=== PATIENT | male | born 1950 | race Two or more races ===

== ENCOUNTER → 2022-06-23 | Outpatient (CLI) | payer OTHER ==
[2022-06-23 14:16] LABS: Urine Bacteria NONE SEEN /hpf (None Seen); Urine Blood Negative /uL (Negative); Urine Hyaline Cast FEW /lpf (0 - 2); Urine Specific Gravity 1.013 (1.001-1.035); Urine WBC <1 /hpf (0 - 3)
[2022-06-23 14:28] LABS: Basophils # (auto) 0.1 10 ^3/uL (0-0.2); Eosinophils # (auto) 0.4 10 ^3/uL (0-0.8); Eosinophils % (auto) 3.6 % (0.0-7.0); Hematocrit 40.6 % (41.0-53.0); Hemoglobin 13.2 g/dL (13.5-17.5); Lymphocytes # (auto) 2.5 10 ^3/uL (0.4-5.4); Mean Corpuscular Hemoglobin 30.8 pg (28.0-32.0); Mean Corpuscular Hgb Conc. 32.4 g/dL (32.0-36.0); Mean Corpuscular Volume 94.9 fL (80.0-100.0); Monocytes # (auto) 1.2 10 ^3/uL (0-1.3); Monocytes % (auto) 11.3 % (0.0-12.0); Neutrophils # (auto) 6.5 10 ^3/uL (1.6-8.6); Neutrophils % (auto) 61.1 % (37.0-80.0); Nucleated Red Blood Cells % 0.1 %; Red Blood Cells 4.27 10^6/uL (4.5-5.90); Red Cell Distribution Width 14.3 % (11.8-14.3); White Blood Cell 10.7 10^3/uL (4.4-10.8)
[2022-06-23 15:09] LABS: Potassium 4.6 mmol/L (3.5-5.1)
[2022-06-23 15:20] LABS: Albumin 3.3 g/dL (3.4-5.0); BUN/Creatinine Ratio 14.6; Bilirubin, Total 0.4 mg/dL (0.2-1.0); Calcium 9.4 mg/dL (8.5-10.1); Total Protein 7.3 g/dL (6.4-8.2)
== END | disposition home or self-care (01) ==
LOC: LAB 13:39
PROVIDERS: ATTEND Internal Medicine
DX: Z12.11 Encounter for screening for malignant neoplasm of colon (principal); R25.2 Cramp and spasm; J44.9 Chronic obstructive pulmonary disease, unspecified
CPT/HCPCS: 36415; 80053; 80061; 81001; 84153; 84443; 85025

== ENCOUNTER 2022-07-03 14:38 | Emergency (ER) | payer OTHER ==
[~2022-07-03] VITALS: Ht 175.3 cm; Wt 77.0 kg
[2022-07-03 15:06] VITALS: BP 129/79
[2022-07-03] MEDS ORDERED: AZIT1POW PO (20:12)
== END 2022-07-03 21:40 | disposition home or self-care (01) ==
LOC: ER 14:38
DX: J40 Bronchitis, not specified as acute or chronic (principal); R19.7 Diarrhea, unspecified; R11.0 Nausea; J44.9 Chronic obstructive pulmonary disease, unspecified; R07.89 Other chest pain; I25.2 Old myocardial infarction; I50.9 Heart failure, unspecified; Z90.49 Acquired absence of other specified parts of digestive tract; Z90.89 Acquired absence of other organs; Z95.0 Presence of cardiac pacemaker; Z87.891 Personal history of nicotine dependence; Z79.2 Long term (current) use of antibiotics; Z88.8 Allergy status to other drugs, medicaments and biological substances; Z20.822 Contact with and (suspected) exposure to COVID-19
CPT/HCPCS: 36415; 71046

== ENCOUNTER → 2022-07-09 | Outpatient (CLI) | payer OTHER ==
[~2022-07-09] MED LIST: AZIT1POW PO
[2022-07-09 10:10] LABS: Urine WBC None Seen /hpf (0 - 3)
[2022-07-09 10:28] LABS: Basophils # (auto) 0.1 10 ^3/uL (0-0.2); Basophils % (auto) 0.7 % (0.0-2.0); Eosinophils # (auto) 0.5 10 ^3/uL (0-0.8); Eosinophils % (auto) 4.2 % (0.0-7.0); Hematocrit 42.1 % (41.0-53.0); Hemoglobin 13.2 g/dL (13.5-17.5); Lymphocytes # (auto) 2.2 10 ^3/uL (0.4-5.4); Lymphocytes % (auto) 18.6 % (10.0-50.0); Mean Corpuscular Hemoglobin 29.7 pg (28.0-32.0); Mean Corpuscular Hgb Conc. 31.3 g/dL (32.0-36.0); Monocytes # (auto) 1.4 10 ^3/uL (0-1.3); Monocytes % (auto) 11.6 % (0.0-12.0); Neutrophils # (auto) 7.6 10 ^3/uL (1.6-8.6); Neutrophils % (auto) 64.9 % (37.0-80.0); Red Blood Cells 4.42 10^6/uL (4.5-5.90); Red Cell Distribution Width 13.8 % (11.8-14.3); White Blood Cell 11.7 10^3/uL (4.4-10.8)
[2022-07-09 10:36] LABS: Urine Bacteria NONE SEEN /hpf (None Seen); Urine Blood Negative /uL (Negative); Urine Specific Gravity 1.014 (1.001-1.035)
[2022-07-09 10:57] LABS: Potassium 4.2 mmol/L (3.5-5.1)
[2022-07-09 11:04] LABS: Albumin 3.3 g/dL (3.4-5.0); BUN/Creatinine Ratio 16.7; Bilirubin, Total 0.2 mg/dL (0.2-1.0); Calcium 9.5 mg/dL (8.5-10.1); Total Protein 6.7 g/dL (6.4-8.2)
== END | disposition home or self-care (01) ==
LOC: LAB 10:02
PROVIDERS: ATTEND Internal Medicine
DX: J44.9 Chronic obstructive pulmonary disease, unspecified (principal); R10.9 Unspecified abdominal pain
CPT/HCPCS: 36415; 80053; 81001; 82150; 83690; 85025; 85045

== ENCOUNTER → 2022-08-14 | Outpatient (CLI) | payer OTHER ==
[2022-08-14 15:05] LABS: Basophils # (auto) 0.1 10 ^3/uL (0-0.2); Basophils % (auto) 1.2 % (0.0-2.0); Eosinophils # (auto) 0.4 10 ^3/uL (0-0.8); Eosinophils % (auto) 4.2 % (0.0-7.0); Hematocrit 44.2 % (41.0-53.0); Hemoglobin 14.2 g/dL (13.5-17.5); Lymphocytes # (auto) 3.5 10 ^3/uL (0.4-5.4); Lymphocytes % (auto) 35.2 % (10.0-50.0); Mean Corpuscular Hemoglobin 30.2 pg (28.0-32.0); Mean Corpuscular Hgb Conc. 32.2 g/dL (32.0-36.0); Monocytes % (auto) 10.1 % (0.0-12.0); Neutrophils # (auto) 4.9 10 ^3/uL (1.6-8.6); Neutrophils % (auto) 49.3 % (37.0-80.0); Red Cell Distribution Width 13.7 % (11.8-14.3)
== END | disposition home or self-care (01) ==
LOC: LAB 14:43
PROVIDERS: ATTEND Internal Medicine
DX: D72.819 Decreased white blood cell count, unspecified (principal)
CPT/HCPCS: 36415; 85025

== ENCOUNTER 2022-12-16 09:27 | Observation (INO) | payer OTHER ==
[2022-12-12 14:06] LABS: Basophils # (auto) 0.1 10 ^3/uL (0-0.2); Red Cell Distribution Width 14.9 % (11.8-14.3)
[2022-12-12 14:07] LABS: Basophils % (auto) 1.1 % (0.0-2.0); Eosinophils # (auto) 0.4 10 ^3/uL (0-0.8); Hematocrit 38.1 % (41.0-53.0); Hemoglobin 12.3 g/dL (13.5-17.5); Lymphocytes # (auto) 2.3 10 ^3/uL (0.4-5.4); Lymphocytes % (auto) 22.6 % (10.0-50.0); Mean Corpuscular Hgb Conc. 32.2 g/dL (32.0-36.0); Mean Corpuscular Volume 93.1 fL (80.0-100.0); Monocytes % (auto) 9.5 % (0.0-12.0); Neutrophils # (auto) 6.5 10 ^3/uL (1.6-8.6); Neutrophils % (auto) 62.8 % (37.0-80.0); Nucleated Red Blood Cells % 0.1 %; Red Blood Cells 4.09 10^6/uL (4.5-5.90); White Blood Cell 10.4 10^3/uL (4.4-10.8)
[2022-12-12 14:19] LABS: INR 0.96 (0.9-1.15); Partial Thromboplastin Time 26.1 sec (24.6-33.4)
[2022-12-12 14:20] LABS: Calcium 8.8 mg/dL (8.5-10.1); Potassium 4.6 mmol/L (3.5-5.1)
[2022-12-12 14:23] LABS: BUN/Creatinine Ratio 20.2; Bilirubin, Total 0.3 mg/dL (0.2-1.0); Total Protein 7.3 g/dL (6.4-8.2)
[2022-12-12 14:49] LABS: Urine Bacteria NONE SEEN /hpf (None Seen); Urine Blood Negative /uL (Negative); Urine Hyaline Cast MOD /lpf (0 - 2); Urine Mucus FEW (None Seen); Urine Specific Gravity 1.027 (1.001-1.035); Urine WBC 1 /hpf (0 - 3)
[~2022-12-16] VITALS: Ht 172.7 cm; Wt 72.0 kg
[~2022-12-16 09:27] MED LIST changes: +ALBU0.084 NEB; +ALBUAER3 IN; +ALFU10TA33 PO; +ASPI1TAB20 PO; -AZIT1POW PO; +BUDE1AER4 IN; +CARV3.1240 PO; +FINA5TAB4 PO; +FLUT110A IN; +FURO20TA3 PO; +GABA300C10 PO; +HYDR1TAB97 PO; +MULT-1018 OR; +OMEP20TA PO; +SERT50TA19 PO; +SIMV-13 PO; +TIOT17SP IN; +TRAZ50TA2 PO
[2022-12-16] MEDS ORDERED: ceFAZolin 1GM/50ML 100 ML IV ONE (10:00)
[2022-12-16] MEDS ORDERED: fentaNYL CITRATE 5 ML ONE (11:01)
[2022-12-16] MEDS ORDERED: fentaNYL CITRATE 100 MCG/2 ML VL ONE (11:01)
[2022-12-16] MEDS ORDERED: MIDAZOLAM HCL 2MG/2ML 2ml VIAL (1mg/ml) ONE (11:01)
[2022-12-16] MEDS ORDERED: ONDANSETRON HCL 4 MG/2 ML VIAL ONE (11:05)
[2022-12-16] MEDS ORDERED: ROCURONIUM 10MG/ML 10ML VIAL IV ONE (11:05)
[2022-12-16] MEDS ORDERED: BUPIVACAINE 0.5% P/F INJ 10 ML VIAL ONE (11:55)
[2022-12-16] MEDS ORDERED: TRANEXAMIC ACID 20 ML ONE (11:55)
[2022-12-16] MEDS ORDERED: HYDROmorphone HCL 2 MG/ML VL/or syr ONE (12:42)
[2022-12-16] MEDS ORDERED: ONDANSETRON HCL 4 MG/2 ML VIAL IV PRN ×4 (14:00→19:30)
[2022-12-16] MEDS ORDERED: HYDROmorphone HCL 2 MG/ML VL/or syr IV PRN ×4 (14:00→17:15)
[2022-12-16] MEDS ORDERED: NITROGLYCERIN 0.4 MG SL TAB SL PRN ×2 (15:45→19:30)
[2022-12-16] MEDS: LACTATED RINGER'S 1,000 ML IV SCH (15:45)
[2022-12-16] MEDS ORDERED: ACETAMINOPHEN 325 MG TAB PO PRN ×2 (15:45→19:30)
[2022-12-16] MEDS ORDERED: HYDROcodone-ACET 5/325MG TAB PO PRN (15:45)
[2022-12-16] MEDS ORDERED: MORPHINE SULFATE INJ 2 MG/ml SYRG IV PRN ×2 (15:45→19:30)
[2022-12-16] MEDS ORDERED: PROPOFOL 10 MG/ML 20 ML IV ONE (16:05)
[2022-12-16] MEDS ORDERED: ETOMIDATE (2MG/ML) 20ML VIAL IV ONE (16:07)
[2022-12-16] MEDS ORDERED: FUROSEMIDE 20 MG/2 ML VIAL IV ONE (16:45)
[2022-12-16] MEDS ORDERED: FUROSEMIDE 20 MG/2 ML VIAL ONE (16:45)
[2022-12-16] MEDS ORDERED: GLYCOPYRROLATE 0.2 MG/ML 1ML VIAL ONE (17:01)
[2022-12-16] MEDS ORDERED: NEOSTIGMINE 1 MG/ML INJ (10mg/10ML VIAL) ONE (17:01)
[2022-12-16] MEDS: HYDROmorphone HCL 2 MG/ML VL/or syr IV PRN ×3 (17:22→18:18)
[2022-12-16] MEDS: ceFAZolin 1GM/50ML 50 ML IV SCH ×2 (18:00→19:00)
[2022-12-16] MEDS ORDERED: ALBUTEROL MEDNEB 2.5 mg/3ml NEB ONE (18:19)
[2022-12-16] MEDS ORDERED: ALBUTEROL MEDNEB 2.5 mg/3ml NEB NEB ONE (18:45)
[2022-12-16] MEDS ORDERED: ALBUTEROL MEDNEB 2.5 mg/3ml NEB NEB PRN (19:15)
[2022-12-16 19:28] VITALS: BP 123/63
[2022-12-16 20:35] VITALS: BP 139/90
[2022-12-16] MEDS: OMEPRAZOLE 20 MG PO SCH (21:50)
[2022-12-16 22:00] VITALS: BP 138/77
[2022-12-16] MEDS ORDERED: ATORVASTATIN 20 MG TAB PO SCH (22:00)
[2022-12-16] MEDS: SODIUM CHLOR 0.9% PF (SALINE LOCK) 10ML VIAL/SYR IV SCH (22:00)
[2022-12-16] MEDS: DOCUSATE SOD 100 MG CAP PO SCH (22:00)
[2022-12-16] MEDS: CARVEDILOL 3.125 MG TAB PO SCH (22:01)
[2022-12-16] MEDS: GABAPENTIN 300 MG CAP PO SCH (22:01)
[2022-12-16] MEDS: ALBUTEROL MEDNEB 2.5 mg/3ml NEB NEB SCH (23:07)
[2022-12-16] MEDS: IPRATROPIUM BROM 0.5 MG/2.5ML INH SOL NEB SCH (23:07)
[2022-12-17] MEDS: HYDROcodone-ACET 5/325MG TAB PO PRN ×4 (00:20→08:47)
[2022-12-17] MEDS: ceFAZolin 1GM/50ML 50 ML IV SCH ×2 (00:26→06:00)
[2022-12-17] MEDS: IPRATROPIUM BROM 0.5 MG/2.5ML INH SOL NEB SCH ×3 (01:26→11:39)
[2022-12-17] MEDS: LACTATED RINGER'S 1,000 ML IV SCH (01:45)
[2022-12-17] MEDS: ALBUTEROL MEDNEB 2.5 mg/3ml NEB NEB SCH ×3 (01:57→11:40)
[2022-12-17 05:07] VITALS: BP 121/63
[2022-12-17] MEDS: GABAPENTIN 300 MG CAP PO SCH (06:00)
[2022-12-17] MEDS: SODIUM CHLOR 0.9% PF (SALINE LOCK) 10ML VIAL/SYR IV SCH (06:00)
[2022-12-17 07:22] LABS: Basophils # (auto) 0.1 10 ^3/uL (0-0.2); Basophils % (auto) 0.6 % (0.0-2.0); Eosinophils # (auto) 0 10 ^3/uL (0-0.8); Monocytes # (auto) 1.6 10 ^3/uL (0-1.3); Red Cell Distribution Width 15.2 % (11.8-14.3)
[2022-12-17 07:25] LABS: Eosinophils % (auto) 0.3 % (0.0-7.0); Hematocrit 39.5 % (41.0-53.0); Hemoglobin 12.2 g/dL (13.5-17.5); Lymphocytes # (auto) 1.7 10 ^3/uL (0.4-5.4); Mean Corpuscular Hemoglobin 28.7 pg (28.0-32.0); Mean Corpuscular Volume 92.6 fL (80.0-100.0); Monocytes % (auto) 12.7 % (0.0-12.0); Neutrophils % (auto) 72.4 % (37.0-80.0); Red Blood Cells 4.26 10^6/uL (4.5-5.90); White Blood Cell 12.5 10^3/uL (4.4-10.8)
[2022-12-17 07:40] LABS: Albumin 2.7 g/dL (3.4-5.0); Calcium 8.5 mg/dL (8.5-10.1); Potassium 4.4 mmol/L (3.5-5.1)
[2022-12-17 07:44] LABS: BUN/Creatinine Ratio 13.6; Bilirubin, Total 0.5 mg/dL (0.2-1.0); Total Protein 6.8 g/dL (6.4-8.2)
[2022-12-17 08:00] VITALS: BP 130/69
[2022-12-17] MEDS: OMEPRAZOLE 20 MG PO SCH (08:44)
[2022-12-17] MEDS: CARVEDILOL 3.125 MG TAB PO SCH (08:46)
[2022-12-17] MEDS: DOCUSATE SOD 100 MG CAP PO SCH (08:46)
[2022-12-17 09:00] VITALS: BP 130/69
[2022-12-17] MEDS ORDERED: FLUTICASONE PROPIONATE IN SCH (10:00)
[2022-12-17] MEDS ORDERED: FUROSEMIDE 20 MG TAB PO SCH (10:00)
[2022-12-17] MEDS ORDERED: FINASTERIDE 5 MG TAB PO SCH (10:00)
[2022-12-17] MEDS ORDERED: ALFUZOSIN HYDROCHLORIDE 10 MG PO SCH (10:00)
[2022-12-17] MEDS ORDERED: TIOTROPIUM BROMIDE MONOHYDRATE 2.5 MCG IN SCH (10:00)
== END 2022-12-17 13:03 | disposition home or self-care (01) ==
LOC: SUR 09:27 → TELE 15:36 → INTOOBSV 15:36 → UNDOADMOB 15:36 → TELE 19:19 → TELE-WESTW 20:06 → TELE 20:06
PROVIDERS: ADMIT Orthopaedic Surgery Sports Medicine; ATTEND Orthopaedic Surgery Sports Medicine
DX: S42.202A Unspecified fracture of upper end of left humerus, initial encounter for closed fracture (principal); Z20.822 Contact with and (suspected) exposure to COVID-19; I10 Essential (primary) hypertension; J44.9 Chronic obstructive pulmonary disease, unspecified; F41.8 Other specified anxiety disorders; I48.91 Unspecified atrial fibrillation; K21.9 Gastro-esophageal reflux disease without esophagitis; M24.60 Ankylosis, unspecified joint; Z79.82 Long term (current) use of aspirin; Z95.0 Presence of cardiac pacemaker; Z85.51 Personal history of malignant neoplasm of bladder; Z91.041 Radiographic dye allergy status; Z87.891 Personal history of nicotine dependence; Z79.899 Other long term (current) drug therapy; Z79.891 Long term (current) use of opiate analgesic; Z98.890 Other specified postprocedural states; X58.XXXA Exposure to other specified factors, initial encounter; Y93.89 Activity, other specified; Y92.89 Other specified places as the place of occurrence of the external cause; Y99.8 Other external cause status
CPT/HCPCS: 23615; 36415; 36600; 71045; 73060; 80053; 81001; 82805; 85025; 85610; 85730; 94640; 96365; 96366; 97163; C1713; G0378; J0690; J1170; J1940; J2250; J2405; J2704; J3010; J3490; J7060; J7644; U0003

== ENCOUNTER 2023-01-01 14:12 | Inpatient (IN) | payer OTHER ==
[~2023-01-01] VITALS: Ht 172.7 cm; Wt 67.3 kg
[2023-01-01] MEDS ORDERED: methylPREDNISolone SOD SUCC 125 MG/2 ML VL IV ONE (15:00)
[2023-01-01 15:18] LABS: Hemoglobin 13.8 g/dL (13.5-17.5)
[2023-01-01 15:19] LABS: Hematocrit 42.5 % (41.0-53.0); Mean Corpuscular Hemoglobin 29.6 pg (28.0-32.0); Mean Corpuscular Hgb Conc. 32.6 g/dL (32.0-36.0); Red Blood Cells 4.67 10^6/uL (4.5-5.90); Red Cell Distribution Width 15.1 % (11.8-14.3)
[2023-01-01 15:23] LABS: White Blood Cell 38.4 10^3/uL (4.4-10.8)
[2023-01-01 15:24] LABS: Basophils % (manual) 0 (0.0-2.0); Blast Cells 0; Eosinophils % (manual) 0 (0-7); Metamyelocytes % 0; Myelocytes % 0; Promyelocytes % 0; Reactive Lymphocytes 0
[2023-01-01 15:35] LABS: Albumin 3.4 g/dL (3.4-5.0); BUN/Creatinine Ratio 14.9; Calcium 9.5 mg/dL (8.5-10.1); Potassium 4.6 mmol/L (3.5-5.1)
[2023-01-01 15:38] LABS: Bilirubin, Total 0.7 mg/dL (0.2-1.0); Total Protein 7.9 g/dL (6.4-8.2)
[2023-01-01 15:40] LABS: Lactic Acid w/Reflex 2.5 mmol/L (0.4-2.0)
[2023-01-01 16:39] VITALS: BP 120/72
[2023-01-01 16:55] VITALS: BP 100/64
[2023-01-01] MEDS ORDERED: ALBUTEROL MEDNEB 2.5 mg/3ml NEB ONE (16:57)
[2023-01-01] MEDS ORDERED: IPRATROPIUM BROM 0.5 MG/2.5ML INH SOL HHN ONE (17:00)
[2023-01-01] MEDS ORDERED: PIPERACILLIN-TAZOB 3.375GM 100 ML IV ONE (17:00)
[2023-01-01] MEDS ORDERED: ALBUTEROL SULF 2.5 MG/0.5ML(0.5%) NEB SOLN HHN ONE (17:00)
[2023-01-01 17:42] LABS: Band Neutrophils % (manual) 7; Lymphocytes % (manual) 2 (10.0-50.0); Monocytes % (manual) 5 (0-12)
[2023-01-01 18:16] VITALS: BP 91/58
[2023-01-01 19:36] VITALS: BP 92/58
[2023-01-01] MEDS ORDERED: IPRATROPIUM BROM 0.5 MG/2.5ML INH SOL NEB PRN (21:30)
[2023-01-01] MEDS ORDERED: HEPARIN SODIUM (PORCINE) 5000 UNITS/ML 1ML VIAL SC ONE (21:30)
[2023-01-01] MEDS ORDERED: DOCUSATE SOD 100 MG CAP PO PRN (21:30)
[2023-01-01] MEDS ORDERED: ACETAMINOPHEN 325 MG TAB PO PRN (21:30)
[2023-01-01] MEDS ORDERED: ONDANSETRON HCL 4 MG/2 ML VIAL IV PRN (21:30)
[2023-01-01] MEDS ORDERED: IOHEXOL 300 MG/ML 100ML BOTTLE IJ ONE (21:34)
[2023-01-01] MEDS ORDERED: ALBUTEROL MEDNEB 2.5 mg/3ml NEB NEB PRN (22:00)
[2023-01-01 22:11] VITALS: BP 102/66
[2023-01-01] MEDS: FAMOTIDINE (10MG/ML) 2ML VL IV SCH (23:11)
[2023-01-01] MEDS: HEPARIN SODIUM (PORCINE) 5000 UNITS/ML 1ML VIAL SC SCH (23:12)
[2023-01-01] MEDS: SODIUM CHLOR 0.9% PF (SALINE LOCK) 10ML VIAL/SYR IV SCH (23:13)
[2023-01-01] MEDS: methylPREDNISolone SOD SUCC 40 MG/ML VL IV SCH (23:13)
[2023-01-01] MEDS ORDERED: MORPHINE SULFATE INJ 2 MG/ml SYRG IV PRN (23:45)
[2023-01-01] MEDS ORDERED: NITROGLYCERIN 0.4 MG SL TAB SL PRN (23:45)
[2023-01-02 00:02] VITALS: BP 98/65
[2023-01-02 02:10] VITALS: BP 87/54
[2023-01-02] MEDS: HYDROcodone-ACET 5/325MG TAB PO PRN ×3 (03:55→20:22)
[2023-01-02 04:05] VITALS: BP 99/63
[2023-01-02 04:55] LABS: Mean Corpuscular Hemoglobin 28.7 pg (28.0-32.0); Mean Corpuscular Hgb Conc. 31.4 g/dL (32.0-36.0)
[2023-01-02 04:58] LABS: Hematocrit 40.3 % (41.0-53.0); Hemoglobin 12.6 g/dL (13.5-17.5); Mean Corpuscular Volume 91.5 fL (80.0-100.0); Red Blood Cells 4.41 10^6/uL (4.5-5.90)
[2023-01-02 05:04] LABS: Albumin 2.8 g/dL (3.4-5.0); Calcium 9.3 mg/dL (8.5-10.1); Potassium 4.8 mmol/L (3.5-5.1)
[2023-01-02 05:06] LABS: BUN/Creatinine Ratio 21.8; Lactic Acid w/Reflex 2.1 mmol/L (0.4-2.0)
[2023-01-02 05:09] LABS: Bilirubin, Total 0.4 mg/dL (0.2-1.0)
[2023-01-02 05:23] LABS: Basophils % (manual) 0 (0.0-2.0); Blast Cells 0; Eosinophils % (manual) 0 (0-7); Metamyelocytes % 0; Monocytes % (manual) 0 (0-12); Myelocytes % 0; Promyelocytes % 0; Reactive Lymphocytes 0; White Blood Cell 34.3 10^3/uL (4.4-10.8)
[2023-01-02 06:01] VITALS: BP 117/70
[2023-01-02] MEDS: methylPREDNISolone SOD SUCC 40 MG/ML VL IV SCH ×3 (06:15→21:41)
[2023-01-02] MEDS: SODIUM CHLOR 0.9% PF (SALINE LOCK) 10ML VIAL/SYR IV SCH ×3 (06:15→21:42)
[2023-01-02 07:40] VITALS: BP 114/72
[2023-01-02 08:50] LABS: Band Neutrophils % (manual) 7; Lymphocytes % (manual) 5 (10.0-50.0)
[2023-01-02] MEDS: cefTRIAXone 1GM/50ML D5W 50 ML IV SCH (09:07)
[2023-01-02 09:41] LABS: Urine Bacteria NONE SEEN /hpf (None Seen); Urine Blood Negative /uL (Negative); Urine Hyaline Cast FEW /lpf (0 - 2); Urine Mucus FEW (None Seen); Urine Specific Gravity 1.031 (1.001-1.035); Urine WBC 2 /hpf (0 - 3)
[2023-01-02] MEDS: FAMOTIDINE (10MG/ML) 2ML VL IV SCH ×2 (09:43→21:41)
[2023-01-02] MEDS: HEPARIN SODIUM (PORCINE) 5000 UNITS/ML 1ML VIAL SC SCH ×2 (09:44→21:35)
[2023-01-02] MEDS: AZITHROMYCIN 500MG/ 250ML 250 ML IV SCH (09:44)
[2023-01-02] MEDS: FUROSEMIDE 20 MG/2 ML VIAL IV SCH (09:45)
[2023-01-02] MEDS: MORPHINE SULFATE INJ 2 MG/ml SYRG IV PRN ×2 (11:22→17:09)
[2023-01-02 22:00] VITALS: BP 134/84
[2023-01-02] MEDS ORDERED: TEMAZEPAM 15 MG CAP PO ONE (23:45)
[2023-01-03] MEDS: MORPHINE SULFATE INJ 2 MG/ml SYRG IV PRN ×4 (01:26→17:33)
[2023-01-03 05:00] VITALS: BP 136/79
[2023-01-03] MEDS: methylPREDNISolone SOD SUCC 40 MG/ML VL IV SCH ×3 (05:34→21:42)
[2023-01-03] MEDS: SODIUM CHLOR 0.9% PF (SALINE LOCK) 10ML VIAL/SYR IV SCH ×3 (05:35→21:43)
[2023-01-03] MEDS: HYDROcodone-ACET 5/325MG TAB PO PRN ×4 (05:36→21:42)
[2023-01-03 06:50] VITALS: BP 140/83
[2023-01-03 08:00] VITALS: BP 126/87
[2023-01-03] MEDS: cefTRIAXone 1GM/50ML D5W 50 ML IV SCH (08:28)
[2023-01-03 09:00] VITALS: BP 123/89
[2023-01-03] MEDS: HEPARIN SODIUM (PORCINE) 5000 UNITS/ML 1ML VIAL SC SCH ×2 (10:26→21:44)
[2023-01-03 11:32] LABS: Basophils % (auto) 0.2 % (0.0-2.0); Eosinophils # (auto) 0 10 ^3/uL (0-0.8); Lymphocytes # (auto) 0.9 10 ^3/uL (0.4-5.4); Monocytes % (auto) 4.9 % (0.0-12.0); Nucleated Red Blood Cells % 0.1 %
[2023-01-03 11:34] LABS: Basophils # (auto) 0 10 ^3/uL (0-0.2); Hematocrit 38.1 % (41.0-53.0); Hemoglobin 12.7 g/dL (13.5-17.5); Lymphocytes % (auto) 3.2 % (10.0-50.0); Mean Corpuscular Hemoglobin 29.4 pg (28.0-32.0); Mean Corpuscular Hgb Conc. 33.4 g/dL (32.0-36.0); Mean Corpuscular Volume 88.1 fL (80.0-100.0); Monocytes # (auto) 1.4 10 ^3/uL (0-1.3); Neutrophils # (auto) 26.7 10 ^3/uL (1.6-8.6); Neutrophils % (auto) 91.7 % (37.0-80.0); Red Blood Cells 4.32 10^6/uL (4.5-5.90); White Blood Cell 29.1 10^3/uL (4.4-10.8)
[2023-01-03] MEDS: FUROSEMIDE 20 MG/2 ML VIAL IV SCH (11:50)
[2023-01-03] MEDS: FAMOTIDINE (10MG/ML) 2ML VL IV SCH ×2 (11:51→21:43)
[2023-01-03] MEDS: AZITHROMYCIN 500MG/ 250ML 250 ML IV SCH (12:13)
[2023-01-03 13:00] VITALS: BP 156/95
[2023-01-03] MEDS: CEFEPIME 2 GM in SODIUM CHL 0.9% 50 ML IV SCH ×2 (15:11→21:43)
[2023-01-03 21:31] VITALS: BP 135/87
[2023-01-03] MEDS: GABAPENTIN 300 MG CAP PO SCH (21:42)
[2023-01-04] VITALS (7 sets, daily range): BP systolic 111–153; BP diastolic 78–96
[2023-01-04] MEDS: MORPHINE SULFATE INJ 2 MG/ml SYRG IV PRN ×2 (00:43→08:42)
[2023-01-04] MEDS: CEFEPIME 2 GM in SODIUM CHL 0.9% 50 ML IV SCH ×2 (06:08→15:32)
[2023-01-04] MEDS: SODIUM CHLOR 0.9% PF (SALINE LOCK) 10ML VIAL/SYR IV SCH ×2 (06:08→14:58)
[2023-01-04] MEDS: methylPREDNISolone SOD SUCC 40 MG/ML VL IV SCH (06:08)
[2023-01-04] MEDS: HYDROcodone-ACET 5/325MG TAB PO PRN (06:08)
[2023-01-04] MEDS: GABAPENTIN 300 MG CAP PO SCH ×2 (06:09→14:57)
[2023-01-04] MEDS: FAMOTIDINE (10MG/ML) 2ML VL IV SCH (08:41)
[2023-01-04] MEDS: FUROSEMIDE 20 MG/2 ML VIAL IV SCH (08:43)
[2023-01-04] MEDS: AZITHROMYCIN 500MG/ 250ML 250 ML IV SCH (08:44)
[2023-01-04] MEDS: HEPARIN SODIUM (PORCINE) 5000 UNITS/ML 1ML VIAL SC SCH (08:44)
[2023-01-04] MEDS ORDERED: ALBUTEROL SULF 2.5 MG/0.5ML(0.5%) NEB SOLN NEB ONE (12:45)
[2023-01-04] MEDS ORDERED: ALBUTEROL SULF 2.5 MG/0.5ML(0.5%) NEB SOLN NEB PRN (12:45)
[2023-01-04] MEDS ORDERED: AMOX-277 PO (13:38)
[2023-01-04] MEDS ORDERED: PRED20TA2 PO (13:38)
[2023-01-04] MEDS ORDERED: methylPREDNISolone SOD SUCC 125 MG/2 ML VL IV SCH (14:00)
[2023-01-04] MEDS ORDERED: DOXY-332 PO (14:35)
== END 2023-01-04 17:44 | disposition home or self-care (01) | DRG 193 ==
LOC: ER 14:12 → TELE 23:46 → TELE-WESTW 01-02 18:05
PROVIDERS: ADMIT Nurse Practitioner Family; ATTEND Internal Medicine
PROC: 5A09357 Assistance with Respiratory Ventilation, Less than 24 Consecutive Hours, Continuous Positive Airway Pressure (ICD-10-PCS; principal; 2023-01-01)
DX: J18.9 Pneumonia, unspecified organism (principal); J96.21 Acute and chronic respiratory failure with hypoxia; J96.22 Acute and chronic respiratory failure with hypercapnia; J44.0 Chronic obstructive pulmonary disease with (acute) lower respiratory infection; J44.1 Chronic obstructive pulmonary disease with (acute) exacerbation; Z20.822 Contact with and (suspected) exposure to COVID-19; E11.65 Type 2 diabetes mellitus with hyperglycemia; E66.01 Morbid (severe) obesity due to excess calories; E88.09 Other disorders of plasma-protein metabolism, not elsewhere classified; F17.200 Nicotine dependence, unspecified, uncomplicated; I25.10 Atherosclerotic heart disease of native coronary artery without angina pectoris; I50.9 Heart failure, unspecified; R29.6 Repeated falls; W18.39XA Other fall on same level, initial encounter; Y93.89 Activity, other specified; I25.2 Old myocardial infarction; Y92.098 Other place in other non-institutional residence as the place of occurrence of the external cause; Y99.8 Other external cause status; Z79.899 Other long term (current) drug therapy; Z95.0 Presence of cardiac pacemaker; Z68.22 Body mass index [BMI] 22.0-22.9, adult
CPT/HCPCS: 36415; 36600; 71045; 71250; 73030; 80053; 81001; 82805; 83605; 83735; 83880; 84484; 85007; 85025; 85027; 85379; 87040; 87081; 87426; 93005; 93306; 94640; 94660; 96365; 96366; 96367; 96368; 96375; 99291; G0378; J0696; J2543; J3490

== ENCOUNTER 2023-01-18 08:08 | Inpatient (IN) | payer OTHER ==
[~2023-01-18] VITALS: Ht 177.8 cm; Wt 66.5 kg
[~2023-01-18 08:08] MED LIST changes: +AMOX-277 PO; +DOXY-332 PO; +PRED20TA2 PO
[2023-01-18 10:16] LABS: Basophils # (auto) 0.1 10 ^3/uL (0-0.2); Basophils % (auto) 0.4 % (0.0-2.0); Eosinophils # (auto) 0.1 10 ^3/uL (0-0.8); Eosinophils % (auto) 0.3 % (0.0-7.0); Hematocrit 37.6 % (41.0-53.0); Hemoglobin 12.2 g/dL (13.5-17.5); Lymphocytes # (auto) 1.4 10 ^3/uL (0.4-5.4); Lymphocytes % (auto) 5.9 % (10.0-50.0); Mean Corpuscular Hemoglobin 28.5 pg (28.0-32.0); Mean Corpuscular Hgb Conc. 32.4 g/dL (32.0-36.0); Mean Corpuscular Volume 88.1 fL (80.0-100.0); Monocytes # (auto) 2.4 10 ^3/uL (0-1.3); Monocytes % (auto) 10.1 % (0.0-12.0); Neutrophils # (auto) 19.5 10 ^3/uL (1.6-8.6); Neutrophils % (auto) 83.3 % (37.0-80.0); Nucleated Red Blood Cells % 0.1 %; Red Blood Cells 4.27 10^6/uL (4.5-5.90); Red Cell Distribution Width 16.2 % (11.8-14.3); White Blood Cell 23.4 10^3/uL (4.4-10.8)
[2023-01-18 10:34] LABS: Albumin 2.6 g/dL (3.4-5.0); Calcium 8.9 mg/dL (8.5-10.1); Potassium 4.4 mmol/L (3.5-5.1)
[2023-01-18 10:38] LABS: BUN/Creatinine Ratio 18.2; Bilirubin, Total 0.6 mg/dL (0.2-1.0); Total Protein 6.3 g/dL (6.4-8.2)
[2023-01-18] MEDS ORDERED: ONDANSETRON HCL 4 MG/2 ML VIAL IV ONE (12:30)
[2023-01-18] MEDS ORDERED: MORPHINE SULFATE INJ 2 MG/ml SYRG IV ONE (12:30)
[2023-01-18] MEDS ORDERED: cefTRIAXone 1GM/50ML D5W 50 ML IV ONE (16:00)
[2023-01-18] MEDS ORDERED: ENOXAPARIN SOD 80 MG/0.8ML SYRINGE SC ONE (16:00)
[2023-01-18] MEDS ORDERED: ONDANSETRON HCL 4 MG/2 ML VIAL IV PRN (16:00)
[2023-01-18] MEDS ORDERED: NITROGLYCERIN 0.4 MG SL TAB SL PRN (16:00)
[2023-01-18] MEDS ORDERED: AZITHROMYCIN 500MG/ 250ML 250 ML IV ONE (16:00)
[2023-01-18] MEDS ORDERED: ACETAMINOPHEN 325 MG TAB PO PRN (16:00)
[2023-01-18] MEDS ORDERED: MORPHINE SULFATE INJ 2 MG/ml SYRG IV PRN ×2 (16:00)
[2023-01-18 16:19] VITALS: BP 121/75
[2023-01-18 18:35] LABS: Urine Bacteria NONE SEEN /hpf (None Seen); Urine Blood Negative /uL (Negative); Urine Mucus FEW (None Seen); Urine Specific Gravity 1.023 (1.001-1.035); Urine WBC <1 /hpf (0 - 3)
[2023-01-18] MEDS: IPRATROPIUM BROM 0.5 MG/2.5ML INH SOL NEB SCH ×2 (18:38→23:26)
[2023-01-18] MEDS: ALBUTEROL SULF 2.5 MG/0.5ML(0.5%) NEB SOLN NEB SCH ×2 (18:38→23:26)
[2023-01-18] MEDS: HYDROcodone-ACET 5/325MG TAB PO PRN (18:45)
[2023-01-18] MEDS: methylPREDNISolone SOD SUCC 125 MG/2 ML VL IV SCH (22:24)
[2023-01-19] MEDS: ALBUTEROL SULF 2.5 MG/0.5ML(0.5%) NEB SOLN NEB SCH ×5 (05:29→22:00)
[2023-01-19] MEDS: IPRATROPIUM BROM 0.5 MG/2.5ML INH SOL NEB SCH ×5 (05:29→22:00)
[2023-01-19] MEDS: methylPREDNISolone SOD SUCC 125 MG/2 ML VL IV SCH ×3 (06:03→21:55)
[2023-01-19] MEDS: HYDROcodone-ACET 5/325MG TAB PO PRN ×2 (06:06→17:58)
[2023-01-19 06:39] LABS: Hemoglobin 12.7 g/dL (13.5-17.5); Mean Corpuscular Hemoglobin 28.9 pg (28.0-32.0); Mean Corpuscular Hgb Conc. 32.6 g/dL (32.0-36.0); Mean Corpuscular Volume 88.5 fL (80.0-100.0); Red Blood Cells 4.41 10^6/uL (4.5-5.90); Red Cell Distribution Width 16.3 % (11.8-14.3); White Blood Cell 23.8 10^3/uL (4.4-10.8)
[2023-01-19 06:54] LABS: Basophils % (manual) 0 (0.0-2.0); Blast Cells 0; Eosinophils % (manual) 0 (0-7); Metamyelocytes % 0; Myelocytes % 0; Promyelocytes % 0; Reactive Lymphocytes 0
[2023-01-19 07:29] LABS: Albumin 2.5 g/dL (3.4-5.0); Calcium 9.4 mg/dL (8.5-10.1); Potassium 4.2 mmol/L (3.5-5.1)
[2023-01-19 07:32] LABS: Bilirubin, Total 0.5 mg/dL (0.2-1.0); Total Protein 7.6 g/dL (6.4-8.2)
[2023-01-19 09:06] LABS: Band Neutrophils % (manual) 1; Lymphocytes % (manual) 3 (10.0-50.0); Monocytes % (manual) 3 (0-12)
[2023-01-19] MEDS: ENOXAPARIN SOD 40 MG/0.4 ML SYRINGE SC SCH (12:15)
[2023-01-19 13:04] VITALS: BP 109/69
[2023-01-19 13:15] VITALS: BP 105/69
[2023-01-19 15:52] VITALS: BP 118/70
[2023-01-19 16:18] VITALS: BP 118/70
[2023-01-19 22:00] VITALS: BP 120/72
[2023-01-20] MEDS: HYDROcodone-ACET 5/325MG TAB PO PRN ×3 (00:51→10:32)
[2023-01-20 05:00] VITALS: BP 112/70
[2023-01-20] MEDS: methylPREDNISolone SOD SUCC 125 MG/2 ML VL IV SCH ×3 (05:06→21:31)
[2023-01-20] MEDS: ALBUTEROL SULF 2.5 MG/0.5ML(0.5%) NEB SOLN NEB SCH ×4 (06:35→22:17)
[2023-01-20] MEDS: IPRATROPIUM BROM 0.5 MG/2.5ML INH SOL NEB SCH ×4 (06:36→22:17)
[2023-01-20 09:00] VITALS: BP 108/63
[2023-01-20] MEDS: ENOXAPARIN SOD 40 MG/0.4 ML SYRINGE SC SCH (09:20)
[2023-01-20 13:00] VITALS: BP 114/75
[2023-01-20 17:00] VITALS: BP 113/69
[2023-01-20] MEDS: DOXYCYCLINE 100 MG TAB/CAP PO SCH (21:31)
[2023-01-20 22:00] VITALS: BP 111/65
[2023-01-21] MEDS: HYDROcodone-ACET 5/325MG TAB PO PRN ×2 (03:55→09:49)
[2023-01-21 05:00] VITALS: BP 110/69
[2023-01-21] MEDS: methylPREDNISolone SOD SUCC 125 MG/2 ML VL IV SCH ×3 (05:21→21:17)
[2023-01-21] MEDS: IPRATROPIUM BROM 0.5 MG/2.5ML INH SOL NEB SCH ×4 (06:45→18:22)
[2023-01-21] MEDS: ALBUTEROL SULF 2.5 MG/0.5ML(0.5%) NEB SOLN NEB SCH ×4 (06:45→18:22)
[2023-01-21] MEDS: DOXYCYCLINE 100 MG TAB/CAP PO SCH ×2 (07:58→21:18)
[2023-01-21] MEDS: ENOXAPARIN SOD 40 MG/0.4 ML SYRINGE SC SCH (07:58)
[2023-01-21 09:00] VITALS: BP 122/70
[2023-01-21 09:55] VITALS: BP 122/70
[2023-01-21 13:00] VITALS: BP 108/75
[2023-01-21] MEDS: HYDROcodone-ACET 10/325MG TAB PO PRN (16:17)
[2023-01-21 17:00] VITALS: BP 141/72
[2023-01-21 22:00] VITALS: BP 136/69
[2023-01-22] VITALS (7 sets, daily range): BP systolic 104–121; BP diastolic 65–75
[2023-01-22] MEDS: ALBUTEROL SULF 2.5 MG/0.5ML(0.5%) NEB SOLN NEB SCH ×6 (00:21→22:19)
[2023-01-22] MEDS: IPRATROPIUM BROM 0.5 MG/2.5ML INH SOL NEB SCH ×6 (00:21→22:19)
[2023-01-22] MEDS: HYDROcodone-ACET 10/325MG TAB PO PRN ×4 (02:06→19:34)
[2023-01-22] MEDS: methylPREDNISolone SOD SUCC 125 MG/2 ML VL IV SCH ×3 (05:26→21:25)
[2023-01-22] MEDS: DOXYCYCLINE 100 MG TAB/CAP PO SCH ×2 (09:55→21:25)
[2023-01-22] MEDS: ENOXAPARIN SOD 40 MG/0.4 ML SYRINGE SC SCH (09:55)
[2023-01-23 05:00] VITALS: BP 114/74
[2023-01-23] MEDS: methylPREDNISolone SOD SUCC 125 MG/2 ML VL IV SCH ×3 (05:46→21:19)
[2023-01-23] MEDS: IPRATROPIUM BROM 0.5 MG/2.5ML INH SOL NEB SCH ×5 (06:03→22:29)
[2023-01-23] MEDS: ALBUTEROL SULF 2.5 MG/0.5ML(0.5%) NEB SOLN NEB SCH ×5 (06:04→22:29)
[2023-01-23 08:00] VITALS: BP 129/83
[2023-01-23] MEDS: ENOXAPARIN SOD 40 MG/0.4 ML SYRINGE SC SCH (08:31)
[2023-01-23] MEDS: HYDROcodone-ACET 10/325MG TAB PO PRN ×2 (08:32→20:07)
[2023-01-23] MEDS: DOXYCYCLINE 100 MG TAB/CAP PO SCH ×2 (08:32→21:19)
[2023-01-23 12:00] VITALS: BP 116/74
[2023-01-23 14:07] LABS: Band Neutrophils % (manual) 0; Basophils % (manual) 0 (0.0-2.0); Blast Cells 0; Eosinophils % (manual) 0 (0-7); Metamyelocytes % 0; Myelocytes % 0; Promyelocytes % 0; Reactive Lymphocytes 0
[2023-01-23 14:10] LABS: Basophils # (auto) 0 10 ^3/uL (0-0.2); Basophils % (auto) 0.2 % (0.0-2.0); Eosinophils # (auto) 0 10 ^3/uL (0-0.8); Hematocrit 37.4 % (41.0-53.0); Hemoglobin 12.2 g/dL (13.5-17.5); Lymphocytes # (auto) 0.8 10 ^3/uL (0.4-5.4); Lymphocytes % (auto) 4.3 % (10.0-50.0); Mean Corpuscular Hemoglobin 28.3 pg (28.0-32.0); Mean Corpuscular Hgb Conc. 32.6 g/dL (32.0-36.0); Mean Corpuscular Volume 86.8 fL (80.0-100.0); Monocytes # (auto) 0.9 10 ^3/uL (0-1.3); Monocytes % (auto) 4.7 % (0.0-12.0); Neutrophils # (auto) 16.7 10 ^3/uL (1.6-8.6); Neutrophils % (auto) 90.8 % (37.0-80.0); Red Blood Cells 4.31 10^6/uL (4.5-5.90); Red Cell Distribution Width 15.6 % (11.8-14.3); White Blood Cell 18.3 10^3/uL (4.4-10.8)
[2023-01-23 14:32] LABS: Albumin 2.4 g/dL (3.4-5.0); BUN/Creatinine Ratio 33.8; Calcium 9.5 mg/dL (8.5-10.1); Potassium 4.7 mmol/L (3.5-5.1)
[2023-01-23 14:35] LABS: Bilirubin, Total 0.4 mg/dL (0.2-1.0); Total Protein 6.5 g/dL (6.4-8.2)
[2023-01-23 14:51] LABS: Lymphocytes % (manual) 3 (10.0-50.0); Monocytes % (manual) 3 (0-12)
[2023-01-23 16:00] VITALS: BP 107/67
[2023-01-23] MEDS ORDERED: FUROSEMIDE 20 MG/2 ML VIAL IV ONE (17:15)
[2023-01-23 20:00] VITALS: BP 111/70
[2023-01-23 22:00] VITALS: BP 111/70
[2023-01-24 05:00] VITALS: BP 124/75
[2023-01-24] MEDS: methylPREDNISolone SOD SUCC 125 MG/2 ML VL IV SCH ×2 (05:05→14:10)
[2023-01-24] MEDS: IPRATROPIUM BROM 0.5 MG/2.5ML INH SOL NEB SCH ×3 (06:27→13:52)
[2023-01-24] MEDS: ALBUTEROL SULF 2.5 MG/0.5ML(0.5%) NEB SOLN NEB SCH ×3 (06:27→13:52)
[2023-01-24] MEDS: DOXYCYCLINE 100 MG TAB/CAP PO SCH (09:13)
[2023-01-24] MEDS: ENOXAPARIN SOD 40 MG/0.4 ML SYRINGE SC SCH (09:13)
[2023-01-24] MEDS: HYDROcodone-ACET 10/325MG TAB PO PRN (09:14)
[2023-01-24 10:36] VITALS: BP 124/75
[2023-01-24] MEDS ORDERED: METH4PAK PO (12:27)
[2023-01-24] MEDS ORDERED: DOX100T PO (12:27)
[2023-01-24 13:44] VITALS: BP 77/67
== END 2023-01-24 16:07 | disposition home health service (06) | DRG 177 ==
LOC: ER 08:08 → EDBD 08:08 → TELE 16:00 → TELE-CENTR 01-19 13:50
PROVIDERS: ADMIT Internal Medicine; ATTEND Internal Medicine
DX: J15.6 Pneumonia due to other Gram-negative bacteria (principal); J96.21 Acute and chronic respiratory failure with hypoxia; J44.1 Chronic obstructive pulmonary disease with (acute) exacerbation; I42.9 Cardiomyopathy, unspecified; I50.32 Chronic diastolic (congestive) heart failure; J98.11 Atelectasis; J44.0 Chronic obstructive pulmonary disease with (acute) lower respiratory infection; E78.5 Hyperlipidemia, unspecified; I11.0 Hypertensive heart disease with heart failure; Z96.612 Presence of left artificial shoulder joint; I25.10 Atherosclerotic heart disease of native coronary artery without angina pectoris; Z87.891 Personal history of nicotine dependence; Z95.810 Presence of automatic (implantable) cardiac defibrillator; Z88.8 Allergy status to other drugs, medicaments and biological substances; Z91.013 Allergy to seafood; Z98.61 Coronary angioplasty status; Z99.81 Dependence on supplemental oxygen; Z90.49 Acquired absence of other specified parts of digestive tract
CPT/HCPCS: 36415; 71045; 73030; 74176; 78582; 80053; 81001; 83605; 83880; 84484; 85007; 85025; 85027; 85379; 87040; 87426; 93005; 94640; 96365; 96375; 97110; 97116; 97163; 97530; 99291; G0378; J0696; J2405